=== PATIENT | female | born 1985 | race Two or more races ===

== ENCOUNTER → 2016-05-19 | Emergency (ER) | payer MEDICAID, OTHER ==
[~2016-05-19] VITALS: Ht 149.9 cm; Wt 109.8 kg
[~2016-05-19] MED LIST: KETOROLAC TROMETHAMINE INJ 30 MG/ML VIAL IM ONE; KETOROLAC TROMETHAMINE INJ 30 MG/ML VIAL ONE
[2016-05-19 15:30] VITALS: BP 121/76
== END | disposition home or self-care (01) ==
LOC: ER 15:25
DX: S93.491A Sprain of other ligament of right ankle, initial encounter (principal); X58.XXXA Exposure to other specified factors, initial encounter; Y92.89 Other specified places as the place of occurrence of the external cause; Y93.89 Activity, other specified; Y99.8 Other external cause status
CPT/HCPCS: 96372; 99283; A4606; J1885; Z7610